=== PATIENT | male | born 1945 ===

== ENCOUNTER 2020-12-06 17:56 | Emergency (ER) | payer SELFPAY ==
--- NOTE | 2020-12-06 18:06 | NUR ---
PT ARRIVED BY EMS. STATES HE DOESN'T WANT TO BE HERE. PT WALKED UP AND LEFT ER.
--- NOTE | 2020-12-06 18:06 | NUR ---
pt stated he wanted to leave and that he did not want to come to er and that the [place] embasators made hime go
== END 2020-12-06 18:07 | disposition left against medical advice (07) ==
LOC: ED 18:01
DX: R53.1 Weakness (principal); Z53.21 Procedure and treatment not carried out due to patient leaving prior to being seen by health care provider